=== PATIENT | male | born 1965 | race Caucasian/White ===

== ENCOUNTER 2020-06-05 15:47 | Emergency (ER) | payer OTHER, SELFPAY ==
[2020-06-05 15:47] VITALS: BP 134/82; PULSE 88; RESP 18; TEMP 36.6; O2SAT 97; BMI 27.8
--- NOTE | 2020-06-05 15:57 | W.ED.ABDPA2 ---
Documented by User: KYARA Maynard 06/05/20 17:39 HPI - Abdominal Pain General: Chief Complaint: Abdominal Pain Stated Complaint: abd pain Time Seen by Provider: 06/05/20 15:55 History of Present Illness: HPI narrative: Patient is a 55-year-old male comes to the ED with abdominal pain. Patient has a past medical history of hypertension, dyslipidemia and diverticulosis. MD elicited complaint: abdominal pain Pertinent past history: constipation (had constipation for the past couple days.) Onset (ago): day(s) (started yesterday) Pain Consistency: constant Location: RLQ Severity: moderate Pain scale (0-10): 8 Quality: cramping and sharp Radiation: none Migration to: no migration Exacerbating factors: nothing Relieving factors: nothing Associated Symptoms: Reports constipation; Denies chills, diarrhea, dysuria, fever(s), hematochezia, hematuria, nausea and vomiting Review of Systems Const: Denies: fever(s), chills or fatigue Eyes: Denies: change in vision or eye discomfort ENMT: Denies: throat pain, odynophagia, nasal discharge or nasal congestion Card: Denies: chest pain, palpitations, edema, swelling of feet/ankles, dyspnea on exertion or orthopnea Resp: Denies: dyspnea, productive cough or non-productive cough GI: Reports: abdominal pain and constipation; Denies: nausea, vomiting, diarrhea or hematochezia : Denies: flank pain, difficulty urinating, dysuria or hematuria Musc: Denies: neck pain, back pain or extremity swelling Skin/Breast: Denies: rash or new lesions Neuro: Denies: headache(s), numbness in extremities or weakness in extremities PFSH ED PFSH: Medical History Dyslipidemia Essential hypertension GERD (gastroesophageal reflux disease) Hypertriglyceridemia Nocturia Surgical History History of cholecystectomy Family History Other CAD (coronary artery disease) Hypertension Social History Smoking and tobacco status: never smoked Alcohol intake: never Physical Exam Const: COMMON NORMALS: patient oriented x3 and alert GENERAL APPEARANCE: cooperative and comfortable HENMT: COMMON NORMALS: normocephalic HEAD & SCALP: normocephalic MOUTH: Normal oral and palatal mucosa present THROAT: posterior oropharynx normal and uvula midline Eye: COMMON NORMALS: Equal, round and reactive pupils present PUPIL: Yes Equal, round and reactive pupils present Neck/C-Spine: COMMON NORMALS: supple GENERAL: Yes normal visual inspection Resp: COMMON NORMALS: normal respiratory effort, No retractions, No use of accessory muscles and clear to auscultation bilaterally AUSCULTATION: clear to auscultation bilaterally Cardio: COMMON NORMALS: regular rate, regular rhythm, S1 normal heart sound present, S2 normal heart sound present, No gallops present (Cardio), No clicks present (Cardio), No murmurs present (Cardio) and Peripheral pulses 2+ throughout RATE: regular rate RHYTHM: regular rhythm HEART SOUNDS: S1 normal heart sound present and S2 normal heart sound present PERIPHERAL PULSES: Peripheral pulses 2+ throughout GI: COMMON NORMALS: Soft to palpation and no masses INSPECTION: Yes abdominal distension (mild distension) AUSCULTATION: Yes High-pitched bowel sounds present PALPATION: Yes Soft to palpation and Yes Tenderness to palpation present (GI) (Positive McBurney's point tenderness and positive Rovsing sign) Details: LLQ and RLQ : COMMON NORMALS: Yes no CVA tenderness BLADDER/KIDNEY EXAM: Yes no CVA tenderness Back/Pelvis: COMMON NORMALS: no CVA tenderness Extremity: COMMON NORMALS: normal to inspection and no pedal edema Neuro: COMMON NORMALS: patient oriented x3 SENSORIUM/ORIENTATION: Yes alert GAIT: Yes Normal gait present Skin: COMMON NORMALS: no rashes or lesions noted GENERAL SKIN EXAM: no rashes or lesions noted and dry skin Course Reevaluation(s): Reevaluation #1: I went in to check on patient and his pain had improved since being given IV morphine. He is showing no signs of any acute distress. I informed him that Catie Reynolds will be taking over care of patient. Time: 17:00 Vital Signs: Vital signs: Vital Signs Temperature 97.9 F 06/05/20 15:47 Pulse Rate 82 06/05/20 18:00 Respiratory Rate 32 H 06/05/20 16:32 Blood Pressure 139/82 06/05/20 18:00 Pulse Oximetry 92 06/05/20 18:00 MDM - Abdominal Pain MDM Narrative: Medical decision making narrative: Pt care was handed off to Catie Reynolds PA-C. I performed the initial history, physical exam and lab/imaging workup. I informed Catie on lab results and that his CT abdomen is pending Lab Data: Attestation: I reviewed the patient's lab results. Labs: Lab Results 06/05/20 06/05/20 06/05/20 Range/Units 16:19 16:24 16:24 WBC 11.6 H (4.0-10.0) 10^3/ uL RBC 4.26 (4.1-5.3) 10^6/u L Hgb 12.3 (11.7-16.6) g/dL Hct 39.0 L (42.0-52.0) % MCV 91.5 (80-94) fL MCH 28.9 (28.0-34.0) pg MCHC 31.5 (30.0-36.0) g/dL RDW 13.3 (12.1-15.1) % Plt Count 270 (130-400) 10^3/c mm MPV 10.7 H (7.4-10.4) fL Neut % (Auto) 82.1 % Lymph % (Auto) 10.2 % Drew % (Auto) 7.0 % Eos % (Auto) 0.3 % Baso % (Auto) 0.1 % Neut # (Auto) 9.49 H (1.8-7.7) 10^3/u L Lymph # (Auto) 1.2 (0.8-4.8) 10^3/u L Drew # (Auto) 0.8 (0.2-0.9) 10^3/u L Eos # (Auto) 0.0 (0.0-0.8) 10^3/u L Baso # (Auto) 0.0 (0.0-0.1) 10^3/u L Nucleated RBC % (a uto) 0 % Nucleated RBCs # 0.0 /100WBC Sodium 136 (136-145) mmol/L Potassium 3.4 L (3.5-5.1) mmol/L Chloride 103 (98-107) mmol/L Carbon Dioxide 22 (22-29) mmol/L Anion Gap 14.4 (5-19) BUN 9 (6-20) mg/dL Creatinine 0.8 (0.7-1.2) mg/dL GFR Calculation 100.4 (90-130) mL/min Glucose 140 H (65-115) mg/dL Calculated Osmolal ity 283 L (285-295) mOsm/k g Calcium 9.4 (8.5-10.5) mg/dL Total Bilirubin 0.5 (0.15-1.2) mg/dL AST 10 (0-40) U/L ALT 18 (0-41) U/L Alkaline Phosphata se 40 (40-130) IU/L Total Protein 7.2 (6.6-8.7) g/dL Albumin 4.1 (3.5-5.2) g/dL Globulin 3.1 (1.3-4.6) g/dL Lipase 25 (13-60) U/L Urine Color Yellow (Yellow) Urine Appearance Clear (CLEAR) Urine pH 7 (5-7) Ur Specific Gravit y 1.005 (1.005-1.030) Urine Protein Neg (Negative) Urine Glucose (UA) Norm (Normal) Urine Ketones Negative (Negative) Urine Blood 2+ H (Negative) Urine Nitrate Negative (Negative) Urine Bilirubin Neg (Negative) Urine Urobilinogen 1 H (Negative) mg/dL Ur Leukocyte Britney ase Negative (Negative) Urine RBC 5-10 H (0-2) /hpf Urine WBC 5-10 H (0-5) /hpf Ur Squamous Epith Cells Rare (0-5) /hpf Amorphous Sediment Not Reportable Urine Bacteria Trace (NONE) /hpf Urine Mucus Trace /hpf Discharge Plan Discharge Patient Disposition: Home Clinical Impression: Diverticulitis Condition: Stable Prescriptions: New hydrocodone-acetaminophen 5-325 mg tablet 1 tab PO Q6H PRN (Reason: pain) Qty: 14 RF: 0 Zofran 4 mg tablet 4 mg PO Q6H PRN (Reason: nausea and vomiting) Qty: 14 RF: 0 Flagyl 500 mg tablet 500 mg PO BID 7 Days Qty: 14 RF: 0 Cipro 500 mg tablet 500 mg PO Q12H Qty: 14 RF: 0 No Action losartan-hydrochlorothiazide [Hyzaar] 100-25 mg tablet 1 tab PO DAILY Qty: 90 RF: 1 metoprolol succinate 25 mg tablet extended release 24 hr 25 mg PO DAILY Qty: 90 RF: 1 atorvastatin 20 mg tablet 20 mg PO DAILY Qty: 90 RF: 1 fenofibrate nanocrystallized 160 mg tablet 160 mg PO DAILY Qty: 90 RF: 1 citalopram [Celexa] 10 mg tablet 10 mg PO DAILY Qty: 90 RF: 0 CoQ-10 1 tab PO DAILY RF: 0 Probiotic 1 cap PO DAILY RF: 0 vitamin E 1 cap PO DAILY RF: 0 Discharge Orders: Discharge Order (Routine); Ordered 06/05/20 Ordered By: Catie Reynolds Referrals: Carrie Prado DO [Primary Care Provider] - Patient Instructions: Diverticulitis (ED) Activity Restrictions/Additional Instructions: You need to fill prescriptions tomorrow and get started on them as directed. As we discussed you need to return to the emergency department for worsening abdominal pain, repetitive episodes of vomiting, bloody stools, fevers greater than 100.4, or generally feeling ill. Please follow-up with Dr. Prado next week for reevaluation. Clear liquid diet over the next 24 to 48 hours and can advance as tolerated. Sign Out Sign Out Data: Patient Sign Out occurred on 06/05/20 at 17:18. Patient's care was discussed, and care was transferred from to KYARA Burnette. Coding Level of Care Code ED Gis Consultant for Chg Fwd Exam Comprehensive Documented by User: KYARA Burnette 06/05/20 19:24 HPI - Abdominal Pain General: Chief Complaint: Abdominal Pain Stated Complaint: abd pain Time Seen by Provider: 06/05/20 15:55 PFSH ED PFSH: Medical History Dyslipidemia Essential hypertension GERD (gastroesophageal reflux disease) Hypertriglyceridemia Nocturia Surgical History History of cholecystectomy Family History Other CAD (coronary artery disease) Hypertension Social History Smoking and tobacco status: never smoked Alcohol intake: never Course ED course: There has been a delay in pts care as CT is down currently after scanning two COVID patients-ES [id number] Vital Signs: Vital signs: Vital Signs Temperature 97.9 F 06/05/20 15:47 Pulse Rate 82 06/05/20 18:00 Respiratory Rate 32 H 06/05/20 16:32 Blood Pressure 139/82 06/05/20 18:00 Pulse Oximetry 92 06/05/20 18:00 MDM - Abdominal Pain MDM Narrative: Medical decision making narrative: Patient is a very nice 55-year-old male who presents to ED today with complaints of lower abdominal pain. He has not had any episodes of vomiting. CT scan showing sigmoid diverticulitis. Patient tells me he does have a history of this previously. There is no abscess or free air at this time. He does have a reactive ileus. He will be treated with Cipro and Flagyl as well as pain/nausea medications. Recommend he follow-up with PCP this week for reevaluation. Clear liquid diet advised. Return to ED precautions given. Lab Data: Labs: Lab Results 06/05/20 06/05/20 06/05/20 Range/Units 16:19 16:24 16:24 WBC 11.6 H (4.0-10.0) 10^3/ uL RBC 4.26 (4.1-5.3) 10^6/u L Hgb 12.3 (11.7-16.6) g/dL Hct 39.0 L (42.0-52.0) % MCV 91.5 (80-94) fL MCH 28.9 (28.0-34.0) pg MCHC 31.5 (30.0-36.0) g/dL RDW 13.3 (12.1-15.1) % Plt Count 270 (130-400) 10^3/c mm MPV 10.7 H (7.4-10.4) fL Neut % (Auto) 82.1 % Lymph % (Auto) 10.2 % Drew % (Auto) 7.0 % Eos % (Auto) 0.3 % Baso % (Auto) 0.1 % Neut # (Auto) 9.49 H (1.8-7.7) 10^3/u L Lymph # (Auto) 1.2 (0.8-4.8) 10^3/u L Drew # (Auto) 0.8 (0.2-0.9) 10^3/u L Eos # (Auto) 0.0 (0.0-0.8) 10^3/u L Baso # (Auto) 0.0 (0.0-0.1) 10^3/u L Nucleated RBC % (a uto) 0 % Nucleated RBCs # 0.0 /100WBC Sodium 136 (136-145) mmol/L Potassium 3.4 L (3.5-5.1) mmol/L Chloride 103 (98-107) mmol/L Carbon Dioxide 22 (22-29) mmol/L Anion Gap 14.4 (5-19) BUN 9 (6-20) mg/dL Creatinine 0.8 (0.7-1.2) mg/dL GFR Calculation 100.4 (90-130) mL/min Glucose 140 H (65-115) mg/dL Calculated Osmolal ity 283 L (285-295) mOsm/k g Calcium 9.4 (8.5-10.5) mg/dL Total Bilirubin 0.5 (0.15-1.2) mg/dL AST 10 (0-40) U/L ALT 18 (0-41) U/L Alkaline Phosphata se 40 (40-130) IU/L Total Protein 7.2 (6.6-8.7) g/dL Albumin 4.1 (3.5-5.2) g/dL Globulin 3.1 (1.3-4.6) g/dL Lipase 25 (13-60) U/L Urine Color Yellow (Yellow) Urine Appearance Clear (CLEAR) Urine pH 7 (5-7) Ur Specific Gravit y 1.005 (1.005-1.030) Urine Protein Neg (Negative) Urine Glucose (UA) Norm (Normal) Urine Ketones Negative (Negative) Urine Blood 2+ H (Negative) Urine Nitrate Negative (Negative) Urine Bilirubin Neg (Negative) Urine Urobilinogen 1 H (Negative) mg/dL Ur Leukocyte Britney ase Negative (Negative) Urine RBC 5-10 H (0-2) /hpf Urine WBC 5-10 H (0-5) /hpf Ur Squamous Epith Cells Rare (0-5) /hpf Amorphous Sediment Not Reportable Urine Bacteria Trace (NONE) /hpf Urine Mucus Trace /hpf Imaging Data ^: CT Abd/Pel: Radiologist's impression: [facility] [address] [place] [address] CT Scan Report Signed Patient: Ervin Sandoval Unit #: [id number] : 1965 Age/Sex: 55 / M ADM Date: 06/05/20 Loc: ER Room/Bed: Attending Dr: Ordering Provider/Ordering MD: Jimmy Jackson Date of Service: 06/05/20 Procedure(s): CT abdomen pelvis w con* [id number] Accession Number(s): [id number] Report Number: [id number] PROCEDURE INFORMATION: Exam: CT Abdomen And Pelvis With Contrast Exam date and time: 06/05/2020 6:21 PM Age: 55 years old Clinical indication: Abdominal pain; Localized; Right lower quadrant (rlq); Additional info: Abdom pain-rlq TECHNIQUE: Imaging protocol: Computed tomography of the abdomen and pelvis with intravenous contrast. Radiation optimization: All CT scans at this facility use at least one of these dose optimization techniques: automated exposure control; mA and/or kV adjustment per patient size (includes targeted exams where dose is matched to clinical indication); or iterative reconstruction. Contrast material: OMNI 300; Contrast volume: 95 ml; Contrast route: INTRAVENOUS (IV); COMPARISON: No relevant prior studies available. RADIATION DOSE METRICS: Total DLP (mGy-cm): 1144.51 FINDINGS: Lungs: Limited assessment lung bases reveals bilateral dependent atelectasis in the lower lobes. Liver: Hepatomegaly. No visible hepatic mass or cystic structure. Gallbladder and bile ducts: Status post cholecystectomy. Pancreas: Normal. No ductal dilation. Spleen: Normal. No splenomegaly. Adrenals: Normal. No mass. Kidneys and ureters: Bilateral simple renal cortical cysts the largest equator left kidney measuring 45 mm in maximum diameter. No follow-up recommended. No hydronephrosis or perinephric fluid. Stomach and bowel: Examination reveals acute uncomplicated proximal sigmoid diverticulitis. No visible diverticular abscess or extraluminal gas. Focal pericolonic fat phlegmonous inflammatory response. Adjacent reactive small bowel ileus. Appendix: The appendix is visualized and appears noninflamed. Intraperitoneal space: No visible intraperitoneal ascites. Vasculature: Unremarkable. No abdominal aortic aneurysm. Lymph nodes: No visible active mesenteric or retroperitoneal lymphadenopathy. Bladder: Unremarkable as visualized. Reproductive: Mild prostate hypertrophy. Bones/joints: Degenerative disease and degenerative disc disease of the spine most advanced L4/L5. Spondylosis deformans. Soft tissues: Bilateral inguinal hernias containing fat only. CT/CT abdomen pelvis w con* [id number] IMPRESSION: 1. Examination reveals acute uncomplicated proximal sigmoid diverticulitis. No visible diverticular abscess or extraluminal gas. Focal pericolonic fat phlegmonous inflammatory response. 2. Adjacent reactive small bowel ileus. COMMENTS: Consistent with the [employer]'s Incidental Findings Committee white paper (J Am John Radiol 2018): Any incidental renal lesion less than 1 cm or classified as too small to characterize, or any incidental cystic renal lesion characterized as simple-appearing, is likely benign. No follow-up imaging is recommended for these lesions per consensus recommendations based on imaging criteria. Radiation Dose CTDIVOL = (mGy): DLP = 1144.51 (mGy-cm) Dictated By: Chavo Hemphill Signed By: Chavo Hemphill Signed Date/Time: 06/05/201856 DD/ 54 Discharge Plan Discharge Patient Disposition: Home Clinical Impression: Diverticulitis Condition: Stable Prescriptions: New hydrocodone-acetaminophen 5-325 mg tablet 1 tab PO Q6H PRN (Reason: pain) Qty: 14 RF: 0 Zofran 4 mg tablet 4 mg PO Q6H PRN (Reason: nausea and vomiting) Qty: 14 RF: 0 Flagyl 500 mg tablet 500 mg PO BID 7 Days Qty: 14 RF: 0 Cipro 500 mg tablet 500 mg PO Q12H Qty: 14 RF: 0 No Action losartan-hydrochlorothiazide [Hyzaar] 100-25 mg tablet 1 tab PO DAILY Qty: 90 RF: 1 metoprolol succinate 25 mg tablet extended release 24 hr 25 mg PO DAILY Qty: 90 RF: 1 atorvastatin 20 mg tablet 20 mg PO DAILY Qty: 90 RF: 1 fenofibrate nanocrystallized 160 mg tablet 160 mg PO DAILY Qty: 90 RF: 1 citalopram [Celexa] 10 mg tablet 10 mg PO DAILY Qty: 90 RF: 0 CoQ-10 1 tab PO DAILY RF: 0 Probiotic 1 cap PO DAILY RF: 0 vitamin E 1 cap PO DAILY RF: 0 Discharge Orders: Discharge Order (Routine); Ordered 06/05/20 Ordered By: Catie Reynolds Referrals: Carrie Prado DO [Primary Care Provider] - Patient Instructions: Diverticulitis (ED) Activity Restrictions/Additional Instructions: You need to fill prescriptions tomorrow and get started on them as directed. As we discussed you need to return to the emergency department for worsening abdominal pain, repetitive episodes of vomiting, bloody stools, fevers greater than 100.4, or generally feeling ill. Please follow-up with Dr. Prado next week for reevaluation. Clear liquid diet over the next 24 to 48 hours and can advance as tolerated. Sign Out Sign Out Data: Patient Sign Out occurred on 06/05/20 at 17:18. Patient's care was discussed, and care was transferred from to KYARA Burnette. Coding Level of Care Code ED Gis Consultant for Leander Fwd Exam Comprehensive
--- NOTE | 2020-06-05 16:06 | CTR_ITS ---
PROCEDURE INFORMATION: Exam: CT Abdomen And Pelvis With Contrast Exam date and time: 06/05/2020 6:21 PM Age: 55 years old Clinical indication: Abdominal pain; Localized; Right lower quadrant (rlq); Additional info: Abdom pain-rlq TECHNIQUE: Imaging protocol: Computed tomography of the abdomen and pelvis with intravenous contrast. Radiation optimization: All CT scans at this facility use at least one of these dose optimization techniques: automated exposure control; mA and/or kV adjustment per patient size (includes targeted exams where dose is matched to clinical indication); or iterative reconstruction. Contrast material: OMNI 300; Contrast volume: 95 ml; Contrast route: INTRAVENOUS (IV); COMPARISON: No relevant prior studies available. RADIATION DOSE METRICS: Total DLP (mGy-cm): 1144.51 FINDINGS: Lungs: Limited assessment lung bases reveals bilateral dependent atelectasis in the lower lobes. Liver: Hepatomegaly. No visible hepatic mass or cystic structure. Gallbladder and bile ducts: Status post cholecystectomy. Pancreas: Normal. No ductal dilation. Spleen: Normal. No splenomegaly. Adrenals: Normal. No mass. Kidneys and ureters: Bilateral simple renal cortical cysts the largest equator left kidney measuring 45 mm in maximum diameter. No follow-up recommended. No hydronephrosis or perinephric fluid. Stomach and bowel: Examination reveals acute uncomplicated proximal sigmoid diverticulitis. No visible diverticular abscess or extraluminal gas. Focal pericolonic fat phlegmonous inflammatory response. Adjacent reactive small bowel ileus. Appendix: The appendix is visualized and appears noninflamed. Intraperitoneal space: No visible intraperitoneal ascites. Vasculature: Unremarkable. No abdominal aortic aneurysm. Lymph nodes: No visible active mesenteric or retroperitoneal lymphadenopathy. Bladder: Unremarkable as visualized. Reproductive: Mild prostate hypertrophy. Bones/joints: Degenerative disease and degenerative disc disease of the spine most advanced L4/L5. Spondylosis deformans. Soft tissues: Bilateral inguinal hernias containing fat only. CT/CT abdomen pelvis w con* [id number] IMPRESSION: 1. Examination reveals acute uncomplicated proximal sigmoid diverticulitis. No visible diverticular abscess or extraluminal gas. Focal pericolonic fat phlegmonous inflammatory response. 2. Adjacent reactive small bowel ileus. COMMENTS: Consistent with the [employer]'s Incidental Findings Committee white paper (J Am John Radiol 2018): Any incidental renal lesion less than 1 cm or classified as too small to characterize, or any incidental cystic renal lesion characterized as simple-appearing, is likely benign. No follow-up imaging is recommended for these lesions per consensus recommendations based on imaging criteria. Radiation Dose CTDIVOL = (mGy): DLP = 1144.51 (mGy-cm)
[2020-06-05 16:30] VITALS: RESP 32; O2SAT 93
[2020-06-05] MEDS: ondansetron 2 mg/ML SDV 2 mL 4 MG IVP (16:30)
[2020-06-05] MEDS: sodium chloride 0.9% 1,000 ML 999 ML IV (16:30)
[2020-06-05] MEDS: morphine 4 mg/mL SDV 1 mL IVP ×2 (16:30→18:46)
[2020-06-05 16:32] VITALS: BP 130/73; PULSE 84; RESP 32; O2SAT 93
[2020-06-05 16:34] LABS: Basophils % 0.1 %; Eosinophils % 0.3 %; Hemoglobin 12.3 g/dL (11.7-16.6); Lymphocytes # 1.2 10^3/uL (0.8-4.8); Lymphocytes % 10.2 %; Mean Corpuscular HGB Conc 31.5 g/dL (30.0-36.0); Mean Corpuscular Hemoglobin 28.9 pg (28.0-34.0); Mean Corpuscular Volume 91.5 fL (80-94); Mean Platelet Volume 10.7 fL (7.4-10.4); Monocytes # 0.8 10^3/uL (0.2-0.9); Neutrophils # 9.49 10^3/uL (1.8-7.7); Neutrophils % 82.1 %; Nucleated Red Blood Cells % 0 %; Platelet Count 270 10^3/cmm (130-400); Red Blood Count 4.26 10^6/uL (4.1-5.3); Red Cell Distribution Width 13.3 % (12.1-15.1); White Blood Count 11.6 10^3/uL (4.0-10.0)
[2020-06-05 16:51] LABS: Alanine Aminotransferase 18 U/L (0-41); Albumin Level 4.1 g/dL (3.5-5.2); Alkaline Phosphatase 40 IU/L (40-130); Anion Gap 14.4 (5-19); Aspartate Amino Transferase 10 U/L (0-40); Blood Urea Nitrogen 9 mg/dL (6-20); Calcium 9.4 mg/dL (8.5-10.5); Carbon Dioxide 22 mmol/L (22-29); Chloride 103 mmol/L (98-107); Globulin 3.1 g/dL (1.3-4.6); Glomerular Filtration Rate 100.4 mL/min (90-130); Glucose 140 mg/dL (65-115); Lipase 25 U/L (13-60); Osmolality Calculated 283 mOsm/kg (285-295); Potassium 3.4 mmol/L (3.5-5.1); Sodium 136 mmol/L (136-145); Total Bilirubin 0.5 mg/dL (0.15-1.2); Total Protein 7.2 g/dL (6.6-8.7)
[2020-06-05 17:08] LABS: Add Urine Microscopic? YES; Bilirubin Urine Neg (Negative); Blood Urine 2+ (Negative); Glucose Urine UA Norm (Normal); Ketones Urine Negative (Negative); Leukocyte Esterase Urine Negative (Negative); Nitrate Urine Negative (Negative); Protein Urine Neg (Negative); Specific Gravity, Urine 1.005 (1.005-1.030); Urine Appearance Clear (CLEAR); Urine Color Yellow (Yellow); Urobilinogen Urine 1 mg/dL (Negative); pH Urine 7 (5-7)
[2020-06-05 17:21] LABS: Bacteria Urine TRACE /hpf; Mucus Urine TRACE /hpf; Squamous Epithelial Cell Urine RARE /hpf (0-5)
[2020-06-05 17:22] LABS: Add Urine Culture? No
[2020-06-05 18:00] VITALS: BP 139/82; PULSE 82; O2SAT 92
--- NOTE | 2020-06-05 18:23 | PC.NURSE ---
pt being taken to ct via stretcher and painter and grader cork
[2020-06-05] MEDS: iohexol 300 mg/mL 100 mL Btl IV (18:27)
[2020-06-05 19:00] VITALS: BP 124/67; PULSE 85; RESP 12; O2SAT 93
[2020-06-05] MEDS: ciprofloxacin 500 mg Tablet PO (19:17)
[2020-06-05] MEDS: metroNIDAZOLE 500 MG Tablet PO (19:17)
[2020-06-05] MEDS: HYDROcodone-acetaminophen 5-325 mg Tablet 2 TAB PO (19:17)
[2020-06-05] MEDS: ondansetron 4 MG Tablet PO (19:17)
== END 2020-06-05 19:34 | disposition home or self-care (01) ==
PROVIDERS: Physician Assistant; Emergency Provider Physician Assistant; PCP Family Medicine
DX: K57.92 Diverticulitis of intestine, part unspecified, without perforation or abscess without bleeding (principal); E78.5 Hyperlipidemia, unspecified; I10 Essential (primary) hypertension
CPT/HCPCS: 12345; 74177; 80053; 81001; 83690; 85025; 87040; 96365; 96375; 99283; 99284; J2270; J2405; J7030; Q0162; Q9967

== ENCOUNTER 2020-11-03 11:14 | Outpatient (CLI) | payer OTHER, SELFPAY ==
--- NOTE | 2020-11-03 11:45 | USCV_ITS ---
Ervin Sandoval Age: 55 Gender: M : 1965 Exam Date: 11/03/2020 12:20 Ordering Phys: Carrie Prado DO Technologist: Con Palmer Exam Location: [facility] [place] Indication: SYNCOPE Risk Factors: Previous Vascular Surgery: Right Brachial BP: / Left Brachial BP: / Right Left Velocity (cm/s) Spectral Plaque Velocity (cm/s) Spectral Plaque Syst/Diast Broadening Syst/Diast Broadening 82.70/ 29.80 Prox CCA 80.50 / 16.10 77.20/ 24.30 Mid CCA 75.10 / 23.00 73.90/ 28.70 Distal CCA 68.20 / 19.90 63.50/ 18.30 Prox ICA 58.20 / 18.40 83.30/ 19.80 Mid ICA 64.40 / 23.00 59.80/ 19.20 Distal ICA 66.70 / 20.70 59.70 ECA 91.20 1.01 ICA/CCA 0.83 Antegrade Vertebral Antegrade / cm/s 40.60/ 11.50 cm/s Tri Subclavian Tri 97.30 82.00 FINDINGS Minimal plaques of the bifurcations bilaterally Intimal thickening in the common carotid arteries bilaterally Antegrade flow in the vertebral arteries bilaterally Normal Doppler flow velocities in the external carotid arteries bilaterally Normal Doppler velocities in the subclavian arteries bilaterally . CONCLUSIONS Mild plaques bilaterally at the bifurcations Intimal thickening in the common carotid arteries bilaterally No significant stenosis, based on the above findings Dr La Nena Musa MD [facility] (Electronically Signed) Final Date: 03 November 2020 18:15 S
--- NOTE | 2020-11-03 12:30 | USCV_ITS ---
Ervin Sandoval Age: 55 Gender: M : 1965 Exam Date: 11/03/2020 12:09 Ordering Phys: Carrie Prado DO Technologist: Con Palmer Exam Location: [facility] [place] Indication: SYNCOPE BP: 152 / 92 HR: 64 Rhythm: Sinus Technical Quality: Fair MEASUREMENTS (Male / Female) Normal Values 2D ECHO LV Diastolic Diameter PLAX 4.8 cm 4.2 - 5.9 / 3.9 - 5.3 cm LV Systolic Diameter PLAX 2.6 cm IVS Diastolic Thickness 0.9 cm 0.6 - 1.0 / 0.6 - 0.9 cm IVS Systolic Thickness 1.5 cm LVPW Diastolic Thickness 1.1 cm 0.6 - 1.0 / 0.6 - 0.9 cm LVPW Systolic Thickness 1.3 cm LVOT Diameter 2.1 cm LV Ejection Fraction 2D Teich 73.3 % LV Ejection Fraction MOD 2C 57.2 % LV Ejection Fraction 2C AL 59.5 % LA Diameter 4.2 cm LA Width 3.4 cm LA Height 5.5 cm RA Width 3.9 cm RA Height 5.1 cm Aorta at Sinotubular Diameter 3.2 cm M-MODE LV Diastolic Diameter MM 6.1 cm 4.2 - 5.9 / 3.9 - 5.3 cm LV Systolic Diameter MM 3.8 cm LV Ejection Fraction MM Teich 67.5 % IVS Diastolic Thickness MM 1.0 cm 0.6 - 1.0 / 0.6 - 0.9 cm IVS Systolic Thickness MM 1.5 cm LVPW Diastolic Thickness MM 1.1 cm 0.6 - 1.0 / 0.6 - 0.9 cm LVPW Systolic Thickness MM 1.6 cm RV Diastolic Diameter MM 1.5 cm Aortic Annulus Diameter 3.4 cm LA Ao Ratio MM 1.4 MV E Point Septal Separation 0.5 cm DOPPLER AV Peak Velocity 139.0 cm/s LVOT Peak Velocity 102.0 cm/s AV Area Cont Eq vti 3.1 cm squared AV Area Cont Eq pk 2.4 cm squared MV Area PHT 5.0 cm squared Mitral E to A Ratio 0.9 MV E' Velocity 41.0 cm/s Mitral E to MV E' Ratio 9.8 Mitral E to LV E' Lateral Ratio 8.9 Mitral E to LV E' Septal Ratio 10.9 TR Peak Velocity 223.3 cm/s TR Peak Gradient 20.0 mmHg TV Peak E Velocity 85.0 cm/s Right Atrial Pressure 3.0 mmHg Pulmonary Artery Systolic Pressu 23.0 mmHg FINDINGS Left Ventricle Normal left ventricular size and systolic function, EF 56 %. No regional wall motion abnormalities. Right Ventricle The right ventricle is normal in size and function. Right Atrium The right atrium is normal in size. Left Atrium The left atrium is normal in size. Mitral Valve Trace mitral valve regurgitation. Aortic Valve No gross abnormalities noted Tricuspid Valve No gross abnormalities noted Pulmonic Valve No gross abnormalities noted Pericardium Normal pericardium without effusion. Aorta Normal ascending aorta dimension. CONCLUSIONS Normal left ventricular size and systolic function, EF 56 %. No regional wall motion abnormalities. Trace mitral valve regurgitation. No significant stenotic valvular lesions. Normal cardiac chamber sizes. There is no pericardial effusion. There are no intracardiac masses. No previous study is available for comparison. Dr La Nena Musa MD [facility] (Electronically Signed) Final Date: 03 November 2020 18:05 S
== END 2020-11-03 11:15 | disposition home or self-care (01) ==
LOC: RAD 11:15
PROVIDERS: PCP Family Medicine; Visit Provider Family Medicine
DX: R55 Syncope and collapse (principal)
CPT/HCPCS: 80053; 80061; 82043; 85025; 93306; 93880

== ENCOUNTER 2021-02-24 06:00 | Outpatient (CLI) | payer OTHER, SELFPAY | END 2021-02-24 06:01 | disposition home or self-care (01) | LOC: LAB 01-25 14:27 | PROVIDERS: PCP Family Medicine; Visit Provider Family Medicine | DX: E78.5 Hyperlipidemia, unspecified (principal) | CPT/HCPCS: 80053 ==

== ENCOUNTER → 2021-05-09 11:24 | Outpatient (BNVA) | payer OTHER, SELFPAY | PROVIDERS: PCP Family Medicine; Visit Provider Nurse Practitioner Family | DX: Z20.822 Contact with and (suspected) exposure to COVID-19 (principal) | CPT/HCPCS: 87635 ==

== ENCOUNTER → 2021-10-27 14:49 | Outpatient (BNVA) | payer OTHER, SELFPAY | PROVIDERS: PCP Family Medicine; Visit Provider Family Medicine | DX: I10 Essential (primary) hypertension (principal); E78.5 Hyperlipidemia, unspecified; R35.1 Nocturia | CPT/HCPCS: 80053; 80061; 82043; 84153; 85025 ==

== ENCOUNTER → 2022-04-17 10:00 | Outpatient (BNVA) | payer OTHER, SELFPAY | PROVIDERS: PCP Family Medicine; Visit Provider Family Medicine | DX: Z20.822 Contact with and (suspected) exposure to COVID-19 (principal) | CPT/HCPCS: 87426 ==

== ENCOUNTER → 2022-05-04 15:02 | Outpatient (BNVA) | payer OTHER, SELFPAY | PROVIDERS: PCP Family Medicine; Visit Provider Family Medicine | DX: I10 Essential (primary) hypertension (principal); E78.5 Hyperlipidemia, unspecified; R35.1 Nocturia | CPT/HCPCS: 80053 ==

== ENCOUNTER → 2022-11-01 08:08 | Outpatient (BNVA) | payer OTHER, SELFPAY | PROVIDERS: PCP Family Medicine; Visit Provider Family Medicine | DX: I10 Essential (primary) hypertension (principal); E78.5 Hyperlipidemia, unspecified; F41.0 Panic disorder [episodic paroxysmal anxiety] | CPT/HCPCS: 80053; 80061; 82043; 85025 ==

== ENCOUNTER → 2023-05-10 08:13 | Outpatient (BNVA) | payer OTHER, SELFPAY | PROVIDERS: PCP Family Medicine; Visit Provider Family Medicine | DX: I10 Essential (primary) hypertension (principal); R35.1 Nocturia; E78.1 Pure hyperglyceridemia; F33.40 Major depressive disorder, recurrent, in remission, unspecified; F41.0 Panic disorder [episodic paroxysmal anxiety] | CPT/HCPCS: 80053; 84153 ==

== ENCOUNTER 2023-08-02 14:33 | Outpatient (CLI) | payer OTHER, SELFPAY ==
--- NOTE | 2023-08-02 15:00 | US_ITS ---
WS: [id number] TESTICULAR ULTRASOUND HISTORY: left testicular swelling COMPARISON: None available. TECHNIQUE: Real-time and color Doppler imaging or utilized to perform a testicular ultrasound. Right testicle: 3.1 cm x 2.4 cm x 1.6 cm. Normal size and echogenicity. No mass or torsion. Normal color Doppler is present throughout. Systolic and diastolic velocities are both present. No significant hydrocele. Right epididymis: Normal epididymis with no increased vascularity. Left testicle: 3.4 cm x 2.5 cm x 2.8 cm. Normal size and echogenicity. No mass or torsion. Normal color Doppler is present throughout. Systolic and diastolic velocities are both present. Very large LEFT hydrocele. Simple hydrocele displacing the testicle posteriorly. Left epididymis: Normal epididymis with no increased vascularity. IMPRESSION: 1. Large simple LEFT hydrocele displacing the testicle. 2. No testicular mass or torsion identified.
== END 2023-08-02 14:34 | disposition home or self-care (01) ==
LOC: RAD 14:33
PROVIDERS: PCP Family Medicine; Visit Provider Family Medicine
DX: N50.89 Other specified disorders of the male genital organs (principal); N43.3 Hydrocele, unspecified
CPT/HCPCS: 76870

== ENCOUNTER → 2023-09-23 10:46 | Outpatient (BNVA) | payer OTHER, SELFPAY | PROVIDERS: PCP Family Medicine; Visit Provider Psychiatry & Neurology Psychiatry | DX: Z79.899 Other long term (current) drug therapy (principal); F41.0 Panic disorder [episodic paroxysmal anxiety]; F33.40 Major depressive disorder, recurrent, in remission, unspecified; F32.9 Major depressive disorder, single episode, unspecified; F41.1 Generalized anxiety disorder | CPT/HCPCS: 84443 ==

== ENCOUNTER → 2023-10-18 08:15 | Outpatient (BNVA) | payer OTHER, SELFPAY | PROVIDERS: PCP Family Medicine; Visit Provider Family Medicine | DX: I10 Essential (primary) hypertension (principal); E78.5 Hyperlipidemia, unspecified; E78.1 Pure hyperglyceridemia | CPT/HCPCS: 80053; 80061; 82043; 85025 ==

== ENCOUNTER → 2025-01-29 08:44 | Outpatient (BNVA) | payer OTHER, SELFPAY | PROVIDERS: PCP Family Medicine; Visit Provider Family Medicine | DX: I10 Essential (primary) hypertension (principal); Z12.5 Encounter for screening for malignant neoplasm of prostate | CPT/HCPCS: 80053; 80061; 84153; 84439; 84443; 85025 ==

== ENCOUNTER 2025-05-20 15:50 | Outpatient (CLI) | payer OTHER, SELFPAY ==
--- NOTE | 2025-05-20 16:22 | CTR_ITS ---
PROCEDURE INFORMATION: Exam: CT Neck With Contrast Exam date and time: 05/20/2025 4:47 PM Age: 60 years old Clinical indication: Condition or disease; Cancer; Other: Neoplasm of uncertain behavior-larynx TECHNIQUE: Imaging protocol: Computed tomography of the neck with contrast. Radiation optimization: All CT scans at this facility use at least one of these dose optimization techniques: automated exposure control; mA and/or kV adjustment per patient size (includes targeted exams where dose is matched to clinical indication); or iterative reconstruction. Contrast material: OMNI 350; Contrast volume: 100 ml; Contrast route: INTRAVENOUS (IV); COMPARISON: No relevant prior studies available. RADIATION DOSE METRICS: Total DLP (mGy-cm): 193.94 FINDINGS: Salivary glands: Normal. Glands are normal in size. Oral cavity: Unremarkable. Pharynx: Asymmetric appearance of the piriform sinuses with relative effacement of the right side. Underlying mucosal lesion cannot be excluded. Recommend correlation with direct visualization. Larynx: Nonspecific soft tissue thickening/nodularity suggested off the right true vocal cord measuring up to 1 cm in size. Thyroid: No obvious nodules or cysts. Trachea: Visualized upper trachea is unremarkable. Lungs: Lung apices are unremarkable. Lymph nodes: No cervical lymphadenopathy. Bones/joints: No acute bony abnormality. Degenerative changes of the cervical spine. Soft tissues: Subcutaneous soft tissues are unremarkable. CT/CT neck w con* [id number] IMPRESSION: 1. Nonspecific soft tissue thickening/nodularity involving the right true vocal cord. This may represent patient's reported laryngeal cancer. Recommend clinical correlation and correlation with direct visualization. 2. Asymmetric appearance of the piriform sinuses with relative effacement of the right side. Underlying mucosal lesion cannot be excluded. Recommend correlation with direct visualization.
[2025-05-20] MEDS: iohexol 350 mg/mL 500 mL Btl (per mL) IV (16:50)
[2025-05-20 17:45] LABS: Blood Urea Nitrogen 16 mg/dL (8-23)
== END 2025-05-20 15:51 | disposition home or self-care (01) ==
LOC: RAD 15:52
PROVIDERS: PCP Family Medicine; Visit Provider Otolaryngology
DX: D38.0 Neoplasm of uncertain behavior of larynx (principal); R49.0 Dysphonia; J37.0 Chronic laryngitis
CPT/HCPCS: 70491; 82565; 84520

== ENCOUNTER 2025-07-09 14:44 | Outpatient (CLI) | payer OTHER, SELFPAY ==
--- NOTE | 2025-07-09 15:41 | PETR_ITS ---
PROCEDURE INFORMATION: Exam: PET/CT Skull Base to Mid-thigh Exam date and time: 07/09/2025 3:45 PM Age: 60 years old Clinical indication: Condition or disease; Primary cancer: Malignant neoplasm of glotis LABS AND CLINICAL REPORTS: Glucose: 101 mg/dl Treatment strategy for malignancy (PET staging): Initial Staging (PI) TECHNIQUE: Imaging protocol: Following at least four-hour fasting and following the injection of radiopharmaceutical, low dose CT images were obtained. Then, PET images were obtained. Attenuation corrected images were constructed using the CT scan. Fused images of PET and CT were reviewed. The standardized uptake values (SUV) reported below are maximum values within a region of interest, expressed in gm/ml. Exam includes orbital meatal line to mid-thigh. SUV normalization method: BodyWeight Radiopharmaceutical: 11.28 mCi F-18 FDG (Fluorodeoxyglucose), IV. Time of imaging post radiopharmaceutical administration: 49 minutes Injection site: LEFT AC COMPARISON: CT neck w con* [id number] 05/20/2025 4:47 PM FINDINGS: Brain: Visualized brain has normal physiologic uptake. Pharynx: No abnormal uptake. Larynx: Increased FDG uptake along the anterior commissure and involving the right vocal cords, slightly less nodular in appearance compared to the prior study, maximum SUV 21.0. Lungs, pleura and trachea: No abnormal uptake. Heart: Normal physiologic uptake. Mild cardiomegaly. Mediastinal space: No abnormal uptake. Liver: No abnormal uptake. Gallbladder and biliary ducts: No abnormal uptake. Status post cholecystectomy. Pancreas: No abnormal uptake. Spleen: No abnormal uptake. Adrenal glands: No abnormal uptake. Kidneys and ureters: Normal physiologic uptake. Simple left renal measuring up to 6.7 cm. Stomach and bowel: Sigmoid diverticulosis with increased FDG uptake, maximum SUV 9.4, and associated paracolic stranding and inflammatory changes, suspicious for acute diverticulitis. Vasculature: No abnormal uptake. Lymph nodes: Mild increased uptake in a nonenlarged right level 2A lymph node measuring 8 mm in long, maximum SUV 2.8. Leary otherwise no FDG avid lymphadenopathy. Skeleton: No abnormal uptake in the visualized axial and appendicular skeleton. Soft tissues: No abnormal uptake in the visualized head, neck, chest, abdomen, pelvis, and extremities. METRICS: Mediastinal blood pool: Mean SUV of 2.1 Liver uptake: Mean SUV of 2.2 PET/PET skull to thigh INIT [id number] IMPRESSION: 1. Avid increased FDG uptake along the anterior commissure and involving the right vocal cords, slightly less nodular in appearance compared to the prior study, consistent with known glottic neoplasm. 2. Mild increased uptake in a nonenlarged, subcentimeter right level 2A lymph node. This finding remains indeterminate and may be reactive. There is otherwise no additional FDG avid cervical lymphadenopathy. 3. Findings suspicious for mild acute sigmoid diverticulitis. 4. No functional or anatomic evidence of metastatic disease within the chest, abdomen, pelvis or osseous structures.
== END 2025-07-09 14:45 | disposition home or self-care (01) ==
PROVIDERS: PCP Family Medicine; Visit Provider Specialist
DX: C32.0 Malignant neoplasm of glottis (principal); R93.89 Abnormal findings on diagnostic imaging of other specified body structures; I51.7 Cardiomegaly; Z90.49 Acquired absence of other specified parts of digestive tract; R93.422 Abnormal radiologic findings on diagnostic imaging of left kidney; R59.0 Localized enlarged lymph nodes; K57.32 Diverticulitis of large intestine without perforation or abscess without bleeding
CPT/HCPCS: 78815; A9552

== ENCOUNTER 2025-07-15 12:43 | Oncology outpatient (recurring) (ONCR) | payer OTHER, SELFPAY ==
--- NOTE | 2025-07-15 13:28 | N.ONRAD NP_ITS ---
Radiation Oncology New Patient Visit Patient: Ervin Sandoval MR#: [id number] : 1965 Age: 60 Sex: Male Dictated by: Dr. Yuni Larson Date of Service: 07/15/2025 Referring Physician(s) : Dr. 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 Chief Complaint / History of Present Illness: Patient noticed on March 10 that he began to develop a sore throat and a voice change. This apparently happened after he and healed healing from one of his birthday balloons. Since that time he began to have increasing hoarseness and was evaluated by Dr. Barbour. He was found to have a mass on the right true vocal cord which was biopsy positive for squamous cell carcinoma. He has had a PET scan which showed avid uptake along the anterior commissure on the right vocal cord. There was also mild increased uptake in subcentimeter lymph node in the right neck. This was felt to be reactive. He had also noted to have mild acute sigmoid diverticulitis. He is here today to discuss radiation alone for a stage I larynx cancer. Current Medications: alprazolam (Xanax) 0.25 mg PO BID PRN aripiprazole 10 mg PO DAILY 30 days atorvastatin TAKE 1 TABLET BY MOUTH AT BEDTIME buspirone 15 mg PO QID PRN 30 days [calcium PO] [CoQ-10 1 tab PO DAILY] fenofibrate Take 1 tablet by mouth once daily NS losartan-hydrochlorothiazide 100-25 mg 1 tab PO DAILY metoprolol succinate ER 50 mg PO DAILY ondansetron HCl TAKE 1 TABLET BY MOUTH EVERY 8 HOURS NEEDED FOR NAUSEA AND VOMITING potassium chloride ER Take 1 tablet by mouth once daily [Probiotic 1 cap PO DAILY] trazodone 100 mg PO .qhs 30 days venlafaxine ER Take 1 capsule by mouth once daily in the morning [vitamin E 1 cap PO DAILY] Allergies: Medical History: No history of collagen vascular disease. No previous radiation therapy. Psychiatric care KIMBERLY (generalized anxiety disorder) Panic attacks Major depressive disorder, recurrent, in remission COVID-19 Nocturia Hypertriglyceridemia Dyslipidemia Essential hypertension GERD (gastroesophageal reflux disease) Surgical History: History of cholecystectomy Family History: Other CAD (coronary artery disease) Hypertension Social History: Smoking and tobacco/nicotine status: never used tobacco/nicotine Alcohol intake: never Substance/Drug Use: never Adopted: No service: No Current occupational exposures/hazards: No Current Complaints / Review of Systems: . Vital Signs: Performed on 07/15/2025 1:00 PM BMI - 28.047 kg/m2 (high), Height - 72 in, Weight - 206.8 lbs, Temperature - 96.4 f, Pulse - 77 /min, Respiration - 17 /min, O2 Sat - 94 % (low), Pain - 0, Fatigue - 0 and BP - 125/ 73 mm(hg). Physical Exam: General: Patient is sitting comfortably in his chair. He is companied by his HEENT: Normocephalic atraumatic. Pupils are equal, sclera clear, extraocular muscles intact. Neck is supple without palpable cervical supraclavicular neuropathy. Oral cavity was without lesions Pulmonary: Respiratory rate regular nonlabored Cardiovascular: Regular rate and rhythm Abdomen: Fairly flat with minimal adipose tissue Extremities: Without obvious edema or lymphedema Skin: Warm and dry Neurological: Alert and orient x 3. 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 We talked about how it had the biopsy and the PET scan. We reviewed the role of radiation in larynx cancer. We talked about the daily treatment as well as the simulation. We reviewed the risks and side effects both acute and long-term. We discussed a 6-week course of treatment. At this point he verbalizes understanding. He is agreed to proceed. Will schedule him for simulation and begin his treatment shortly thereafter. We also talked about how he would lose his lower portion of his white and how his skin would react to the radiation. He typically tans and does not usually have much in the way of reaction. We also talked about how his voice quality would get better and then make it much worse again. Once we completed treatments his voice would recover but would probably never be quite exactly the same. He verbalized understanding of the list and is agreed to proceed. He will undergo simulation on Saturday and start his treatment shortly thereafter Signed by: 07/15/2025 1:27:04 PM <<Signature on File>> Time spent with patient:35 CPT Code: CPT Code:
== END 2025-07-16 23:59 | disposition home or self-care (01) ==
PROVIDERS: PCP Family Medicine; Visit Provider Radiology Radiation Oncology
DX: Z53.9 Procedure and treatment not carried out, unspecified reason (principal)

== ENCOUNTER 2025-08-11 08:45 | Oncology outpatient (recurring) (ONCR) | payer OTHER, SELFPAY ==
--- NOTE | 2025-08-03 15:45 | ONCRAD TMN_ITS ---
Radiation Oncology Weekly Treatment Management Patient: Ervin Sandoval MR#: [id number] : 1965 Attending Physician: Evan Cole Date of Service: 08/03/2025 Referring Physician(s) : Dr. Ochoa Diagnosis: C32.9 - Malignant neoplasm of larynx, unspecified, Diagnosed 07/15/2025 (Active) Radiotherapy to date: Course: TVC R larynx, Treatment Site: Larynx, Ref. ID: PTV, Energy: 6X, Dose/Fx (cGy): 225, #Fx: , Dose Correction (cGy): 0, Total Dose Delivered (cGy): 900, Start Date: 07/29/2025, End Date: 08/03/2025, Elapsed Days: 5 Reason for visit: The patient is being seen today as part of their regularly scheduled weekly on treatment visits to assess for acute toxicities from radiotherapy. Review of Systems: No voiced complaints. Patient has notable hoarseness which she has had since February of this year. Vital Signs: Performed on 08/03/2025 3:17 PM BMI - 27.505 kg/m2 (high), Height - 72 in, Weight - 202.8 lbs, Temperature - 96.7 f, Pulse - 67 /min, Respiration - 17 /min, O2 Sat - 96 %, Pain - 0, Fatigue - 0 and BP - 136/ 89 mm(hg). Physical Exam: AAOx3. Skin intact. Imaging: Radiation therapy imaging related to accurate target localization (i.e. KV, MV and CBCT) was reviewed. Appropriate changes, if any, were made to ensure treatment accuracy. Plan: Continue XRT Signed by: Evan Cole 08/03/2025 3:43:24 PM
--- NOTE | 2025-08-11 11:16 | ONCRAD TMN_ITS ---
Radiation Oncology Weekly Treatment Management Patient: Lori Cartagena MR#: [id number] : 1965> Attending Physician: Lavinia Ash Date of Service: 08/10/2025 Referring Physician(s) : Diagnosis: C32.9 - Malignant neoplasm of larynx, unspecified, Diagnosed 07/15/2025 (Active) Radiotherapy to date: Course: TVC R larynx, Treatment Site: Larynx, Ref. ID: PTV, Energy: 6X, Dose/Fx (cGy): 225, #Fx: , Dose Correction (cGy): 0, Total Dose Delivered (cGy): 2,025, Start Date: 07/29/2025, Elapsed Days: 12 Reason for visit: The patient is being seen today as part of their regularly scheduled weekly on treatment visits to assess for acute toxicities from radiotherapy. Review of Systems: More hoarse today. He works with grinders at work. We asked him to wear a mask during work hours. No other complaints Vital Signs: Performed on 08/10/2025 3:25 PM BMI - 27.586 kg/m2 (high), Height - 72 in, Weight - 203.4 lbs, Temperature - 97.1 f, Pulse - 70 /min, Respiration - 18 /min, O2 Sat - 97 %, Pain - 0, Fatigue - 0 and BP - 135/ 88 mm(hg). Physical Exam: AAOx3. Skin intact Imaging: Radiation therapy imaging related to accurate target localization (i.e. KV, MV and CBCT) was reviewed. Appropriate changes, if any, were made to ensure treatment accuracy. Plan: Continue XRT Utilize a mask at work Signed by: Evan Cole 08/11/2025 11:15:15 AM
== END 2025-08-15 23:59 | disposition home or self-care (01) ==
PROVIDERS: PCP Family Medicine; Visit Provider Radiology Radiation Oncology
DX: Z51.0 Encounter for antineoplastic radiation therapy (principal); C32.9 Malignant neoplasm of larynx, unspecified
CPT/HCPCS: 77300; 77301; 77334; 77336; 77338; 77386

== ENCOUNTER 2025-09-06 15:18 | Oncology outpatient (recurring) (ONCR) | payer OTHER, SELFPAY ==
--- NOTE | 2025-08-17 15:44 | ONCRAD TMN_ITS ---
Radiation Oncology Weekly Treatment Management Patient: Osiel Sandoval MR#: [id number] : 1965 Attending Physician: Dr. Yuni Larson Date of Service: 08/17/2025 Referring Physician(s) : Diagnosis: C32.9 - Malignant neoplasm of larynx, unspecified, Diagnosed 07/15/2025 (Active) Radiotherapy to date: Course: TVC R larynx, Treatment Site: Larynx, Ref. ID: PTV, Energy: 6X, Dose/Fx (cGy): 225, #Fx: , Dose Correction (cGy): 0, Total Dose Delivered (cGy): 2,700, Start Date: 07/29/2025, Elapsed Days: 19 Reason for visit: The patient is being seen today as part of their regularly scheduled weekly on treatment visits to assess for acute toxicities from radiotherapy. Review of Systems: Throat was sore over , better now. Voice raspy Vital Signs: Performed on 08/17/2025 3:09 PM BMI - 27.342 kg/m2 (high), Height - 72 in, Weight - 201.6 lbs, Temperature - 96.6 f, Pulse - 76 /min, Respiration - 16 /min, O2 Sat - 95 % (low), Pain - 0, Fatigue - 0 and BP - 142/ 81 mm(hg)(high/). Physical Exam: No changes to skin Imaging: Radiation therapy imaging related to accurate target localization (i.e. KV, MV and CBCT) was reviewed. Appropriate changes, if any, were made to ensure treatment accuracy. Plan: Continue treatments as planned. Discussed options to improve sleep Signed by: Dr. Yuni Larson 08/17/2025 3:43:22 PM
--- NOTE | 2025-08-24 15:49 | ONCRAD TMN_ITS ---
Radiation Oncology Weekly Treatment Management Patient: Ervin Sandoval MR#: [id number] : 1965 Attending Physician: Dr. Yuni Larson Date of Service: 08/24/2025 Referring Physician(s) : Diagnosis: C32.9 - Malignant neoplasm of larynx, unspecified, Diagnosed 07/15/2025 (Active) Radiotherapy to date: Course: TVC R larynx, Treatment Site: Larynx, Ref. ID: PTV, Energy: 6X, Dose/Fx (cGy): 225, #Fx: , Dose Correction (cGy): 0, Total Dose Delivered (cGy): 3,825, Start Date: 07/29/2025, End Date: 08/24/2025, Elapsed Days: 26 Reason for visit: The patient is being seen today as part of their regularly scheduled weekly on treatment visits to assess for acute toxicities from radiotherapy. Review of Systems: Pt had drainage last nite, coughing after. Vital Signs: Performed on 08/24/2025 3:37 PM BMI - 27.288 kg/m2 (high), Height - 72 in, Weight - 201.2 lbs, Temperature - 96.5 f, Pulse - 91 /min, Respiration - 17 /min, O2 Sat - 96 %, Pain - 0, Fatigue - 0 and BP - 146/ 90 mm(hg)(high/). Physical Exam: no changes in skin as yet, hair lost, voice breathy Imaging: Radiation therapy imaging related to accurate target localization (i.e. KV, MV and CBCT) was reviewed. Appropriate changes, if any, were made to ensure treatment accuracy. Plan: try Mucinex 12 hour for secretions. Continue treatment as planned Signed by: Dr. Yuni Larson 08/24/2025 3:48:01 PM
--- NOTE | 2025-08-30 15:54 | ONCRAD TMN_ITS ---
Radiation Oncology Weekly Treatment Management Patient: Lori Cartagena MR#: [id number] : 1965> Attending Physician: Evan Cole Date of Service: 08/30/2025 Referring Physician(s) : Diagnosis: C32.9 - Malignant neoplasm of larynx, unspecified, Diagnosed 07/15/2025 (Active) Radiotherapy to date: Course: TVC R larynx, Treatment Site: Larynx, Ref. ID: PTV, Energy: 6X, Dose/Fx (cGy): 225, #Fx: , Dose Correction (cGy): 0, Total Dose Delivered (cGy): 4,725, Start Date: 07/29/2025, End Date: 08/30/2025, Elapsed Days: 32 Reason for visit: The patient is being seen today as part of their regularly scheduled weekly on treatment visits to assess for acute toxicities from radiotherapy. Review of Systems: Complains of cough that he gets scared that he cannot get his breath. They tried Mucinex last time and that did not help and I doubt if MMW would be helpful with the concern of numbness in that area. He has much more hoarseness now. I recommend some OTC Robitussin Vital Signs: Performed on 08/30/2025 3:38 PM BMI - 27.722 kg/m2 (high), Height - 72 in, Weight - 204.4 lbs, Temperature - 97.3 f, Pulse - 68 /min, Respiration - 18 /min, O2 Sat - 94 % (low), Pain - 0, Fatigue - 0 and BP - 127/ 90 mm(hg). Physical Exam: Skin intact. AAOx3. Imaging: Radiation therapy imaging related to accurate target localization (i.e. KV, MV and CBCT) was reviewed. Appropriate changes, if any, were made to ensure treatment accuracy. Plan: Continue XRT Trial of OTC Robitussin Check with me on Saturday to see how beneficial it is been. Signed by: Evan Cole 08/30/2025 3:52:41 PM
== END 2025-09-06 23:59 | disposition home or self-care (01) ==
PROVIDERS: PCP Family Medicine; Visit Provider Radiology Radiation Oncology
DX: Z51.0 Encounter for antineoplastic radiation therapy (principal); C32.9 Malignant neoplasm of larynx, unspecified
CPT/HCPCS: 77336; 77386

== ENCOUNTER 2025-09-13 15:19 | Oncology outpatient (recurring) (ONCR) | payer OTHER, SELFPAY ==
--- NOTE | 2025-09-07 15:43 | ONCRAD TMN_ITS ---
Radiation Oncology Weekly Treatment Management Patient: Lori Cartagena MR#: [id number] : 1965> Attending Physician: Evan Cole Date of Service: 09/07/2025 Referring Physician(s) : Dr. Ochoa Diagnosis: C32.9 - Malignant neoplasm of larynx, unspecified, Diagnosed 07/15/2025 (Active) Radiotherapy to date: Course: TVC R larynx, Treatment Site: Larynx, Ref. ID: PTV, Energy: 6X, Dose/Fx (cGy): 225, #Fx: , Dose Correction (cGy): 0, Total Dose Delivered (cGy): 6,075, Start Date: 07/29/2025, Elapsed Days: 40 Reason for visit: The patient is being seen today as part of their regularly scheduled weekly on treatment visits to assess for acute toxicities from radiotherapy. Review of Systems: No voiced complaints. Hoarseness is a little bit worse. Robitussin has helped his cough. Patient completes treatment on Saturday Vital Signs: Performed on 09/07/2025 3:22 PM BMI - 27.912 kg/m2 (high), Height - 72 in, Weight - 205.8 lbs, Temperature - 97.3 f, Pulse - 72 /min, Respiration - 18 /min, O2 Sat - 96 %, Pain - 0, Fatigue - 0 and BP - 128/ 80 mm(hg). Physical Exam: AAO x 3 skin intact. Much hoarseness but no shortness of breath Imaging: Radiation therapy imaging related to accurate target localization (i.e. KV, MV and CBCT) was reviewed. Appropriate changes, if any, were made to ensure treatment accuracy. Plan: Continue XRT Completes treatment on 09/13/2025 Signed by: Evan Cole 09/07/2025 3:40:47 PM
--- NOTE | 2025-09-13 15:39 | N.ONRD TS_ITS ---
Radiation Oncology Treatment Summary Patient: Ervin Sandoval MR#: [id number] : 1965 Age: 60 Sex: Male Dictated by: Evan Cole Date of Service: 09/13/2025 Referring Physician(s) : Dr Ochoa Diagnosis: C32.9 - Malignant neoplasm of larynx, unspecified, Diagnosed 07/15/2025 (Active) Radiotherapy to Date: Course: TVC R larynx, Treatment Site: Larynx, Ref. ID: PTV, Energy: 6X, Dose/Fx (cGy): 225, #Fx: , Dose Correction (cGy): 0, Total Dose Delivered (cGy): 6,525, Start Date: 07/29/2025, End Date: 09/13/2025, Elapsed Days: 46 Clinical Summary: The patient tolerated RT well. There is moderate increase in quality of hoarseness. No difficulty swallowing foods. Skin intact Plan: End of treatment today. Continue on the above medication until the skin reaction resolves. Follow up in one month. Signed by: Evan Cole>09/13/2025 3:37:55 PM <<Signature on File>>
== END 2025-09-15 23:59 | disposition home or self-care (01) ==
PROVIDERS: PCP Family Medicine; Visit Provider Radiology Radiation Oncology
DX: Z51.0 Encounter for antineoplastic radiation therapy (principal); C32.0 Malignant neoplasm of glottis
CPT/HCPCS: 77336; 77386